=== PATIENT | male | born 1930 | race Caucasian/White ===

== ENCOUNTER 2022-02-19 09:21 | Inpatient (IN) ==
[2022-02-19] MEDS ORDERED: 0.9 % SODIUM CHLORIDE 500 ML IV ONE (09:33)
[2022-02-19] MEDS ORDERED: cefTRIAXone 1 GM VIAL IV ONE (09:38)
[2022-02-19 09:40] LABS: POC Calcium, Ionized 1.21 (1.16-1.32); POC Creatinine 0.6 (0.6-1.2); POC Potassium 3.9 (3.3-5.1)
--- NOTE | 2022-02-19 10:35 | XRay Report ---
INDICATION: sob TECHNIQUE: AP portable, semiupright chest x-ray COMPARISON: Previous chest x-rays dated 02/11/2022, 01/31/2022, 01/31/2022. FINDINGS: Left transvenous pacemaker and transvenous leads are unchanged. Diffuse pulmonary parenchymal infiltrates are worse than on previous examination. Findings are most consistent with underlying pulmonary fibrosis and superimposed pneumonia or pulmonary edema. Interval worsening of infiltrates is too rapid for simple progression of interstitial fibrosis. Clinical correlation follow-up radiographs are recommended. No significant interval change in heart size. No evidence for pleural effusion. IMPRESSION: 1. Findings consistent with underlying pulmonary fibrosis. 2. Diffuse infiltrates have progressed significantly since 02/11/2022 consistent with superimposed pneumonia or pulmonary edema. Follow-up radiographs recommended. Interpreted and Authenticated by: Fredy Betancourt 02/19/22
[2022-02-19 11:23] LABS: Basophils # (Auto) 0 K/mcL (0.00-0.30); Basophils % (Auto) 0 % (0.0-2.0); Eosinophils # (Auto) 0 K/mcL (0.00-0.70); Eosinophils % (Auto) 0 % (0.0-7.0); Hematocrit 34.8 % (40.1-51.0); Hemoglobin 11.4 g/dL (13.7-17.5); Lymphocytes # (Auto) 1.41 K/mcL (1.50-4.80); Lymphocytes % (Auto) 58.5 % (15.5-49.0); Mean Cell Volume 82.3 fL (80.0-100.0); Mean Corpuscular HGB Conc 32.8 g/dL (31.0-36.0); Mean Platelet Volume 10.3 fL (8.8-12.5); Monocytes # (Auto) 0.25 K/mcL (0.10-0.90); Monocytes % (Auto) 10.4 % (1.0-12.0); Neutrophils % (Auto) 30.3 % (38.0-78.0); Platelet Count 154 K/mcL (140-440); RBC 4.23 M/mcL (4.63-6.08); Red Cell Distribution Width 20.3 % (11.5-14.5); WBC 2.4 K/mcL (4.5-11.0)
--- NOTE | 2022-02-19 12:09 | Emergency Department Note ---
SOB HPI General Chief Complaint: Shortness of Breath/Dyspnea Stated Complaint: SOB Time Seen by Provider: 02/19/22 09:53 Source: EMS Mode of arrival: EMS Limitations: no limitations History of Present Illness HPI Narrative: Narrative: 89-year-old male, ex-smoker, with past medical history of COPD, pulmonary fibrosis, atrial fibrillation on apixaban, with pacemaker, hypertension and as below presents with shortness of breath and chest tightness and hypoxia. Patient's states that patient did took off his oxygen last night and he is a O2 sat went down to 50 and then he was put up back on O2 4 L with improvement in O2 to 70. Patient only uses oxygen at home does not use nebulizer. Patient was given DuoNeb and Solu-Medrol 125 mg IV by EMT No headache dizziness abdominal pain nausea vomiting diarrhea fever or chills Related Data Home Medications Medication Instructions Recorded Confirmed apixaban 5 mg tablet (Eliquis) 5 mg PO BID 08/23/19 12/11/21 guaifenesin 600 mg tablet, 600 mg PO BID 06/06/21 12/11/21 extended release 12 hr diltiazem HCl 120 mg 1 cap PO QDAY 02/19/22 02/19/22 capsule,extended release 24 hr Allergies Allergy/AdvReac Type Severity Reaction Status Date / Time No Known Drug Allergies Allergy Verified 11/23/21 08:50 Review of Systems ROS ROS Narrative: Narrative: All systems ED: reviewed and negative except as stated. Constitutional: Reports as per HPI PFSH Narrative Patient History Narrative: Narrative: Medical/Surgical/Family History All Active Problems (Updated 02/19/22 @ 12:19 by Prabhakar Aviles MD) Fall (Acute) Laceration of hand, left (Acute) Laceration of elbow, left (Acute) Community acquired pneumonia (Acute) Acute exacerbation of chronic obstructive pulmonary disease (Acute) Hypoxia (Acute) Pulmonary fibrosis (Acute) Pneumonia (Acute) Presence of permanent cardiac pacemaker (Chronic) Dizziness (Chronic) Dietary counseling (Chronic) Other atopic dermatitis (Chronic) Actinic keratosis (Chronic) Hemangioma (Chronic) Other specified disorders of pigmentation (Chronic) Other benign neoplasm of skin of trunk (Chronic) Seborrheic keratosis (Chronic) Idiopathic urticaria (Chronic) Hx of malignant neoplasm of prostate (Chronic) Benign prostatic hyperplasia with lower urinary tract symptoms (Chronic) Nocturia (Chronic) Elevated prostate specific antigen (PSA) (Chronic) Urgency of urination (Chronic) Memory loss (Chronic) Fatigue (Chronic) Hypertensive heart disease with heart failure (Chronic) 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) Chronic diastolic heart failure (Chronic) Complete atrioventricular block (Chronic) Sick sinus syndrome (Chronic) Paroxysmal atrial fibrillation (Chronic) Ankle edema, bilateral (Chronic) Chronic cough (Chronic) Erectile dysfunction (Chronic) Laryngopharyngeal reflux (Chronic) Vestibular disorders (Chronic) Tinnitus (Chronic) Allergic rhinitis (Chronic) Skin mole (Chronic) Lentigo (Chronic) GERD (gastroesophageal reflux disease) (Chronic) Interstitial lung disease (Chronic) Dyspnea (Chronic) Obstructive sleep apnea (Chronic) Bronchiectasis (Chronic) Acid aspiration syndrome (Chronic) Nocturnal hypoxemia (Chronic) LINDSAY positive (Chronic) Pulmonary fibrosis, unspecified (Chronic) Chronic leukopenia (Chronic) Prostate cancer (Chronic) Anemia (Chronic) Leukopenia (Chronic) Ex-smoker (Chronic) Hypoxia (Chronic) OAB (overactive bladder) (Acute) Medical History Acid aspiration syndrome Actinic keratosis Allergic rhinitis LINDSAY positive Anemia Ankle edema, bilateral Benign prostatic hyperplasia with lower urinary tract symptoms Bronchiectasis Chronic cough Chronic diastolic heart failure Complete atrioventricular block Dietary counseling Dizziness Dyspnea Elevated prostate specific antigen (PSA) Erectile dysfunction Ex-smoker Fatigue GERD (gastroesophageal reflux disease) Hemangioma Hx of malignant neoplasm of prostate Hypertensive heart disease with heart failure Hypoxia Idiopathic urticaria Interstitial lung disease Laryngopharyngeal reflux Lentigo Leukopenia 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 Memory loss Nocturia Nocturnal hypoxemia Obstructive sleep apnea Other atopic dermatitis Other benign neoplasm of skin of trunk Other specified disorders of pigmentation Paroxysmal atrial fibrillation Presence of permanent cardiac pacemaker Prostate cancer Pulmonary fibrosis, unspecified Seborrheic keratosis Sick sinus syndrome Skin mole trunk Tinnitus Urgency of urination Vestibular disorders Surgical History H/O hernia repair (~1979) abdominal History of bone marrow biopsy (~02/2020) History of cystoscopy History of permanent cardiac pacemaker placement (10/21/16) Done at [facility] History of tonsillectomy and adenoidectomy Family History Father , age 74 Myocardial infarction Cancer Son Rheumatoid arthritis Brother Prostate cancer Social History Smoking Status: Former smoker Alcohol Intake Frequency: 0-2 drinks per day Substance Use: does not use Exam Narrative Narrative: Narrative: General Limitations: no limitations General appearance: Present alert and other (Slightly short of breath) Head Head: Present atraumatic and normocephalic Respiratory Respiratory: Present wheezes and other (Coarse rales bilateral lung bases) Cardiovascular Cardiovascular: Present normal rhythm, tachycardia and normal heart sounds Adbominal Abdominal: Present soft; Absent tenderness, guarding or organomegaly Extremities Extremities: Absent pedal edema, cyanosis or clubbing Neurological Neurological: Present alert and oriented X3 Course Course Course Narrative: CBC, CMP, troponin, chest x-ray, blood gas, CRP, COVID were ordered normal salin e IV, Rocephin 1 g IV were given. WBC 2.4 higher than before. Absolute lymphocyte count 0.73 higher than before of 0.42. ABG unremarkable. CRP 13.10, troponin 0.02, chest x-ray consistent with pulmonary follow-up with superimposed pneumonia. Will call hospitalist for admission to the hospital. Discussed case with Dr. Bill who will come and see the patient and admit. Vital Signs Vital signs: Vital Signs Temperature 97.4 F 02/19/22 09:32 Pulse Rate 108 H 02/19/22 09:32 Respiratory Rate 26 H 02/19/22 09:32 Blood Pressure 119/105 02/19/22 09:32 Pulse Oximetry (%) 73 L 02/19/22 09:32 Oxygen Delivery Method 02/19/22 09:32 Oxygen Flow Rate (L/min) 5 02/19/22 09:32 Temperature 97.4 F 02/19/22 09:32 Pulse Rate 115 H 02/19/22 12:45 Respiratory Rate 30 H 02/19/22 12:45 Blood Pressure 118/68 02/19/22 12:45 Pulse Oximetry (%) 94 02/19/22 12:45 Oxygen Delivery Method 02/19/22 10:25 Oxygen Flow Rate (L/min) 7 02/19/22 10:25 MDM MDM Narrative Medical decision making narrative: Narrative: Lab Data Result diagrams: 02/19/22 09:48 Labs: Lab Results 02/19/22 02/19/22 02/19/22 Range/Units 09:34 09:37 09:48 WBC 2.4 L (4.5-11.0) K/mcL RBC 4.23 L (4.63-6.08) M/mcL Hgb 11.4 L (13.7-17.5) g/dL Hct 34.8 L (40.1-51.0) % POC Hct 33.0 L (41-55) MCV 82.3 (80.0-100.0) fL MCH 27.0 (26.0-34.0) pg MCHC 32.8 (31.0-36.0) g/dL RDW 20.3 H (11.5-14.5) % Plt Count 154 (140-440) K/mcL MPV 10.3 (8.8-12.5) fL Immature Gran % (Auto) 0.8 H (0.0-0.5) % Neut % (Auto) 30.3 L (38.0-78.0) % Lymph % (Auto) 58.5 H (15.5-49.0) % Bertie % (Auto) 10.4 (1.0-12.0) % Eos % (Auto) 0 (0.0-7.0) % Baso % (Auto) 0 (0.0-2.0) % Lymph # (Auto) 1.41 L (1.50-4.80) K/mcL Bertie # (Auto) 0.25 (0.10-0.90) K/mcL Eos # (Auto) 0 (0.00-0.70) K/mcL Baso # (Auto) 0 (0.00-0.30) K/mcL Immature Gran # 0.02 (0.00-0.05) K/mcl Absolute Neutrophils 0.73 L* (1.80-8.00) K/mcL POC VBG pH 7.36 (7.32-7.42) POC VBG pCO2 at Temp 43.2 (41-51) POC VBG pO2 26 (25-40) POC VBG HCO3 24.4 (24-28) POC VBG Total CO2 26.0 (25-29) POC Venous O2 Sat 46.0 (40-70) POC VBG Base Excess -1.0 (-2-2) VBG Lactic Acid 2.0 (0.5-2) POC Sodium 134 (133-145) POC Potassium 3.9 (3.3-5.1) POC Chloride 100 (96-108) POC Total CO2 24.0 (22-30) POC BUN 28 H (6-20) POC Creatinine 0.6 (0.6-1.2) POC Glucose 119 H (70-105) POC WB Ioniz Calcium 1.21 (1.16-1.32) C-Reactive Protein (0.03-0.80) mg/dL POC Troponin I (0.00-0.08) 02/19/22 02/19/22 Range/Units 09:48 09:59 WBC (4.5-11.0) K/mcL RBC (4.63-6.08) M/mcL Hgb (13.7-17.5) g/dL Hct (40.1-51.0) % POC Hct (41-55) MCV (80.0-100.0) fL MCH (26.0-34.0) pg MCHC (31.0-36.0) g/dL RDW (11.5-14.5) % Plt Count (140-440) K/mcL MPV (8.8-12.5) fL Immature Gran % (Auto) (0.0-0.5) % Neut % (Auto) (38.0-78.0) % Lymph % (Auto) (15.5-49.0) % Bertie % (Auto) (1.0-12.0) % Eos % (Auto) (0.0-7.0) % Baso % (Auto) (0.0-2.0) % Lymph # (Auto) (1.50-4.80) K/mcL [place]ie # (Auto) (0.10-0.90) K/mcL Eos # (Auto) (0.00-0.70) K/mcL Baso # (Auto) (0.00-0.30) K/mcL Immature Gran # (0.00-0.05) K/mcl Absolute Neutrophils (1.80-8.00) K/mcL POC VBG pH (7.32-7.42) POC VBG pCO2 at Temp (41-51) POC VBG pO2 (25-40) POC VBG HCO3 (24-28) POC VBG Total CO2 (25-29) POC Venous O2 Sat (40-70) POC VBG Base Excess (-2-2) VBG Lactic Acid (0.5-2) POC Sodium (133-145) POC Potassium (3.3-5.1) POC Chloride (96-108) POC Total CO2 (22-30) POC BUN (6-20) POC Creatinine (0.6-1.2) POC Glucose (70-105) POC WB Ioniz Calcium (1.16-1.32) C-Reactive Protein 13.10 H (0.03-0.80) mg/dL POC Troponin I 0.02 (0.00-0.08) Discharge Plan Patient/Caregiver Discharge Instructions Pt seen by MEDICAL LANGUAGE SPECIALIST/PA only: No Clinical Impression: Acute exacerbation of chronic obstructive pulmonary disease, Hypoxia, Pulmonary fibrosis, Pneumonia Patient Disposition: Xfer As Inpt ([facility]) Condition: Fair Follow up with: Yamilet Guardado ARNP [Primary Care Provider] - Prescriptions: No Action Eliquis 5 mg tablet 5 mg PO BID guaifenesin 600 mg tablet extended release 12hr 600 mg PO BID diltiazem HCl 120 mg capsule,extended release 24hr 1 cap PO QDAY
--- NOTE | 2022-02-19 13:16 | Internal Med History&Physical ---
HPI History of Present Illness Patient information: Note initiated : 02/19/22 at 1:08 pm Service Date, if different from initiated Date: [] Patient: Singh Vega a 89 y/o M admitted on for Shortness of breath. Chief Complaint: [shortness of breath with oxygen desaturation] Chief complaint: shortness of breath with oxygen desaturation History of present illness: Mr. Vega is a 89 year old M COPD, pulmonary fibrosis, atrial fibrillation's, presenting with 2-day history of shortness of breath and oxygen desaturations. Patient's was being diagnosed and being treated with community-acquired pneumonia about 2 weeks ago with prescriptions of oral antibiotics. Patient was in his usual health status until yesterday when he took off his oxygen mask his oxygen saturations became in the 50s. His put his oxygen back on and the best of his oxygen saturations with only be improved up to the 70s. Patient used up to 3 L/min of oxygen at the baseline and his had to increase that to 4 L/min but he still with desaturated. He also have shortness of breath. He also have productive cough with bloody sputum productions. He denies respiratory wheezing. He denies any fever, chills, or diaphoresis. He denies a ny chest pain or palpitations. Vital signs at ED presentation significant for tachycardia and tachypnea with heart rate and rate of breathing in the 1 teens and 30s, respectively. Labs significant for leukopenia with WBC 2.4, with an neutrophil count 30.3%. Lactic acid 2.0. CRP 13.10. CEPHEID pending. Chest x- ray showing diffuse infiltrates that have not progressed significantly since last study a week ago, consistent with superimposed pneumonia or pulmonary edema. Admission request was called for pneumonia and COPD exacerbations. Constitutional Constitutional: Absent chills, excessive sweating, fatigue, fever(s) or weakness EENT Eyes: Absent blurry vision, change in vision, loss of vision or other visual disturbances Ears: Absent decreased hearing or tinnitus Nose, mouth and throat: Absent abnormal hearing, dry mouth, headache(s), nasal congestion or sore throat Cardiovascular Cardiovascular: Absent chest pain, chest pain at rest, edema, irregular heart rhythm or palpatations Respiratory Respiratory: Present cough, dyspnea, hemoptysis and excessive phlegm production; Absent wheezing Gastrointestinal Gastrointestinal: Absent abdominal pain, constipation, diarrhea, nausea or vomiting Musculoskeletal Musculoskeletal: Absent back pain, deformity, limited range of motion, muscle cramps, muscle weakness or numbness Integumentary Integumentary: Absent lesions, rash or wounds Neurological Neurological: Absent focal weakness, headache(s) or numbness Psychiatric Psychiatric: Absent anxiety, depression or hallucinations PFSH PFSH All Active Problems (Updated 02/19/22 @ 13:15 by Anuel Lara MD) Permanent atrial fibrillation (Acute) Sepsis (Acute) Fall (Acute) Laceration of hand, left (Acute) Laceration of elbow, left (Acute) Community acquired pneumonia (Acute) Acute exacerbation of chronic obstructive pulmonary disease (Acute) Hypoxia (Acute) Pulmonary fibrosis (Acute) Pneumonia (Acute) Presence of permanent cardiac pacemaker (Chronic) Dizziness (Chronic) Dietary counseling (Chronic) Other atopic dermatitis (Chronic) Actinic keratosis (Chronic) Hemangioma (Chronic) Other specified disorders of pigmentation (Chronic) Other benign neoplasm of skin of trunk (Chronic) Seborrheic keratosis (Chronic) Idiopathic urticaria (Chronic) Hx of malignant neoplasm of prostate (Chronic) Benign prostatic hyperplasia with lower urinary tract symptoms (Chronic) Nocturia (Chronic) Elevated prostate specific antigen (PSA) (Chronic) Urgency of urination (Chronic) Memory loss (Chronic) Fatigue (Chronic) 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) Chronic diastolic heart failure (Chronic) Complete atrioventricular block (Chronic) Sick sinus syndrome (Chronic) Paroxysmal atrial fibrillation (Chronic) Ankle edema, bilateral (Chronic) Chronic cough (Chronic) Erectile dysfunction (Chronic) Laryngopharyngeal reflux (Chronic) Vestibular disorders (Chronic) Tinnitus (Chronic) Allergic rhinitis (Chronic) Skin mole (Chronic) Lentigo (Chronic) GERD (gastroesophageal reflux disease) (Chronic) Interstitial lung disease (Chronic) Dyspnea (Chronic) Obstructive sleep apnea (Chronic) Bronchiectasis (Chronic) Acid aspiration syndrome (Chronic) Nocturnal hypoxemia (Chronic) LINDSAY positive (Chronic) Pulmonary fibrosis, unspecified (Chronic) Chronic leukopenia (Chronic) Prostate cancer (Chronic) Anemia (Chronic) Leukopenia (Chronic) Ex-smoker (Chronic) Hypoxia (Chronic) OAB (overactive bladder) (Acute) Medical History Acid aspiration syndrome Actinic keratosis Allergic rhinitis LINDSAY positive Anemia Ankle edema, bilateral Benign prostatic hyperplasia with lower urinary tract symptoms Bronchiectasis Chronic cough Chronic diastolic heart failure Complete atrioventricular block Dietary counseling Dizziness Dyspnea Elevated prostate specific antigen (PSA) Erectile dysfunction Ex-smoker Fatigue GERD (gastroesophageal reflux disease) Hemangioma Hx of malignant neoplasm of prostate Hypertensive heart disease with heart failure Hypoxia Idiopathic urticaria Interstitial lung disease Laryngopharyngeal reflux Lentigo Leukopenia extermination inspector (current) use of anticoagulants Memory loss Nocturia Nocturnal hypoxemia Obstructive sleep apnea Other atopic dermatitis Other benign neoplasm of skin of trunk Other specified disorders of pigmentation Paroxysmal atrial fibrillation Presence of permanent cardiac pacemaker Prostate cancer Pulmonary fibrosis, unspecified Seborrheic keratosis Sick sinus syndrome Skin mole trunk Tinnitus Urgency of urination Vestibular disorders Surgical History H/O hernia repair (~1979) abdominal History of bone marrow biopsy (~02/2020) History of cystoscopy History of permanent cardiac pacemaker placement (10/21/16) Done at [facility] History of tonsillectomy and adenoidectomy Family History Father , age 74 Myocardial infarction Cancer Son Rheumatoid arthritis Brother Prostate cancer Social History marital status: occupational status: retired smoking status: Former smoker quit date: 03/24/79 pack-years: 12 smoking status stop date: 03/24/79 alcohol intake frequency: 0-2 drinks per day substance use type: does not use MEDS/ALLERGIES Home Medications and Allergies Home Medications Medication Instructions Recorded Confirmed Type apixaban 5 mg tablet (Eliquis) 5 mg PO BID 08/23/19 02/19/22 History guaifenesin 600 mg tablet, 600 mg PO BID 06/06/21 02/19/22 History extended release 12 hr diltiazem HCl 120 mg 1 cap PO QDAY 02/19/22 02/19/22 History capsule,extended release 24 hr Allergies Allergy/AdvReac Type Severity Reaction Status Date / Time No Known Drug Allergies Allergy Verified 11/23/21 08:50 EXAM Constitutional Vitals: Temp Pulse Resp BP Pulse Ox O2 Del Method O2 Flow Rate 36.3 C 115 H 30 H 118/68 94 7 02/19/22 09:32 02/19/22 12:45 02/19/22 12:45 02/19/22 12:45 02/19/22 12:45 02/19/22 10:25 02/19/22 10:25 General appearance: cooperative, mild distress and thin Head Head exam: Present atraumatic and normocephalic Eye Eye exam: Present EOMI and PERRL ENT ENT exam: Present mucous membranes moist, normal exam and normal external ear exam Additional comments: Oxygen mask in place Neck Neck exam: Present normal inspection; Absent lymphadenopathy, tenderness or thyromegaly Respiratory Respiratory exam: Present rhonchi; Absent accessory muscle use, respiratory distress or wheezes Cardiovascular Cardiovascular exam: Present irregular rhythm and tachycardia; Absent JVD GI/Abdominal GI/Abdominal exam: Present normal bowel sounds and soft; Absent organomegaly or tenderness Rectal Rectal exam: Present deferred Extremities Exam Extremities exam: Present full ROM, normal capillary refill and normal inspection; Absent tenderness Neurological Exam Neurological exam: Present alert, CN II-XII intact and oriented X3; Absent motor sensory deficit Psychiatric Psychiatric exam: Present normal affect and normal mood; Absent anxious or depressed Skin Skin exam: Present dry and intact DATA Data Completed and Pending Labs: Labs from last 24 hours 02/19/22 02/19/22 02/19/22 09:59 09:48 09:48 WBC 2.4 L RBC 4.23 L Hgb 11.4 L Hct 34.8 L POC Hct MCV 82.3 MCH 27.0 MCHC 32.8 RDW 20.3 H Plt Count 154 MPV 10.3 Immature Gran % (Auto) 0.8 H Neut % (Auto) 30.3 L Lymph % (Auto) 58.5 H [place] % (Auto) 10.4 Eos % (Auto) 0 Baso % (Auto) 0 Lymph # (Auto) 1.41 L [place] # (Auto) 0.25 Eos # (Auto) 0 Baso # (Auto) 0 Immature Gran # 0.02 Absolute Neutrophils 0.73 L* POC VBG pH POC VBG pCO2 at Temp POC VBG pO2 POC VBG HCO3 POC VBG Total CO2 POC Venous O2 Sat POC VBG Base Excess VBG Lactic Acid POC Sodium POC Potassium POC Chloride POC Total CO2 POC BUN POC Creatinine POC Glucose POC WB Ioniz Calcium C-Reactive Protein 13.10 H POC Troponin I 0.02 02/19/22 02/19/22 09:37 09:34 WBC RBC Hgb Hct POC Hct 33.0 L MCV MCH MCHC RDW Plt Count MPV Immature Gran % (Auto) Neut % (Auto) Lymph % (Auto) [place] % (Auto) Eos % (Auto) Baso % (Auto) Lymph # (Auto) [place] # (Auto) Eos # (Auto) Baso # (Auto) Immature Gran # Absolute Neutrophils POC VBG pH 7.36 POC VBG pCO2 at Temp 43.2 POC VBG pO2 26 POC VBG HCO3 24.4 POC VBG Total CO2 26.0 POC Venous O2 Sat 46.0 POC VBG Base Excess -1.0 VBG Lactic Acid 2.0 POC Sodium 134 POC Potassium 3.9 POC Chloride 100 POC Total CO2 24.0 POC BUN 28 H POC Creatinine 0.6 POC Glucose 119 H POC WB Ioniz Calcium 1.21 C-Reactive Protein POC Troponin I A/P Assessment and plan (1) Sepsis: Status: Acute (2) Community acquired pneumonia: Status: Acute (3) Acute exacerbation of chronic obstructive pulmonary disease: Status: Acute (4) Pulmonary fibrosis: Status: Acute (5) Permanent atrial fibrillation: Status: Acute Narrative A/P Narrative: Assessment and Plans: 1. Community-acquired pneumonia but failed outpatient therapy with associated clinical sepsis: Inpatient PCU with telemetry Supplemental oxygen therapy titrate to achieve SPO2 above or equal to 88% MRSA screening Serial troponin Procalcitonin Blood culture Sputum culture CEPHEID CBC with auto differential in the morning to trend WBC Normal saline at 100 cc/h Vancomycin Zosyn Physical therapy evaluation and treatment 2. COPD exacerbations: Supplemental oxygen therapy titrate to achieve SPO2 above or equal to 88% Solu-Medrol DuoNeb nebulizer scheduled Antibiotic therapy, see #1 3. History of pulmonary fibrosis: Continue to monitor 4. Permanent atrial fibrillation: Diltiazem Eliquis GI ppx: Protonix DVT ppx: Eliquis Code status: DNR Prognosis: guarded Disposition: inpatient PCU; PT OT Time Spent With Patient Time: Total time spent is greater than 50% in coordination of care (as documented) at patient's floor/unit and/or counseling patient: Total time spent with greater than 50% in coordination of care (as documented) at patient's floor/unit and/or counseling patient:: 50 - 70 minutes
[2022-02-19] MEDS ORDERED: ACETAMINOPHEN 325 MG TABLET PO PRN (14:53)
[2022-02-19] MEDS ORDERED: VANCOMYCIN PER PHARMACY IV SCH (14:53)
[2022-02-19] MEDS ORDERED: ONDANSETRON 4 MG/2 ML VIAL IV PRN (14:53)
[2022-02-19] MEDS ORDERED: SENNOSIDES 1 TABLET PO PRN (14:53)
[2022-02-19] MEDS ORDERED: LACTULOSE 20 GM/30 ML ORAL.SOL PO PRN (14:53)
[2022-02-19] MEDS: 0.9 % SODIUM CHLORIDE 1,000 ML IV SCH (14:56)
[2022-02-19] MEDS: 0.9 % SODIUM CHLORIDE 10 ML SYRINGE IV SCH ×2 (14:56→19:45)
[2022-02-19] MEDS ORDERED: VANCOMYCIN 1,000 MG in 0.9 % SODIUM CHLORIDE 250 ML IV SCH (15:00)
[2022-02-19] MEDS: methylPREDNISolone SOD SUCC 125 MG/2 ML VIAL IV SCH ×2 (15:12→22:02)
[2022-02-19] MEDS: IPRATROPIUM/ALBUTEROL 3 ML AMPUL.NEB NEB SCH ×3 (15:14→23:11)
[2022-02-19] MEDS: PIPERACILLIN SODIUM/TAZOBACTAM 3.375 GM in DEXTROSE 5% IN WATER 50 ML IV SCH (16:42)
[2022-02-19] MEDS ORDERED: LORazepam 2 MG/ML VIAL IV PRN (20:16)
[2022-02-19] MEDS ORDERED: NITROGLYCERIN 0.4 MG TAB.SUBL SL PRN (20:26)
[2022-02-19] MEDS ORDERED: morphine 2 MG/ML VIAL IV PRN (20:26)
[2022-02-19] MEDS ORDERED: NITROGLYCERIN 0.4 MG TAB.SUBL SL ONE (20:28)
[2022-02-19] MEDS ORDERED: LORazepam 2 MG/ML VIAL ONE (20:37)
[2022-02-19] MEDS ORDERED: PANTOPRAZOLE 40 MG TABLET PO SCH (21:00)
[2022-02-19] MEDS ORDERED: DOCUSATE SODIUM 100 MG CAPSULE PO SCH (21:00)
[2022-02-19] MEDS ORDERED: APIXABAN 5 MG TABLET PO SCH (21:00)
[2022-02-19] MEDS ORDERED: guaiFENesin 600 MG TAB.SR.12H PO SCH (21:00)
[2022-02-19] MEDS ORDERED: IOPAMIDOL 100 ML BOTTLE IV ONE (22:46)
[2022-02-20] MEDS: PIPERACILLIN SODIUM/TAZOBACTAM 3.375 GM in DEXTROSE 5% IN WATER 50 ML IV SCH (00:12)
[2022-02-20] MEDS ORDERED: METOPROLOL TARTRATE 5 MG/5 ML VIAL IV ONE (02:32)
[2022-02-20] MEDS: METOPROLOL TARTRATE 5 MG/5 ML VIAL IV SCH ×2 (02:35→03:13)
[2022-02-20] MEDS: 0.9 % SODIUM CHLORIDE 1,000 ML IV SCH (03:01)
[2022-02-20] MEDS: IPRATROPIUM/ALBUTEROL 3 ML AMPUL.NEB NEB SCH (03:14)
--- NOTE | 2022-02-20 05:42 | Cat Scan Report ---
INDICATION: rule out PE COMPARISON: Previous chest x-rays dated 02/19/2022, 02/11/2022, 01/31/2022. TECHNIQUE: Axial images obtained through the chest. 60ml Isovue 370 injected intravenously, and scanning was performed during pulmonary arterial phase. Sagittally and coronally reformatted images were obtained. MIP reformatted images. FINDINGS: Examination was initially interpreted by [facility] Examination is suboptimal as this patient was unable to suspend respiration. Previous chest x-ray demonstrated abnormality suggestive of underlying pulmonary fibrosis with superimposed infiltrates consistent with pneumonia or edema Lungs:Severe diffuse abnormality. There are extensive groundglass infiltrates throughout both lungs. There is reticular abnormality which may indicate underlying pulmonary fibrosis. There is no honeycombing. Findings remain suggestive of underlying pulmonary fibrosis with superimposed acute infiltrates. Infiltrates appear worsened on prior examination dated 02/19/2022. Pulmonary edema or diffuse infection are possible. Mediastinum, vascular:Main pulmonary artery, right pulmonary artery, left pulmonary artery are negative. No intraluminal filling defects. No lobar, segmental, or subsegmental emboli. Thoracic aorta is negative. No aneurysmal dilatation. Main pulmonary artery measures 3.0 cm in cross-sectional diameter. This is borderline enlarged No pathologic mediastinal or hilar adenopathy. The thoracic esophagus is mildly dilated and gas-filled. A definite esophageal mass is not identified on this somewhat limited examination. Heart:There is cardiomegaly with biatrial enlargement. There is reflux of contrast material into the inferior vena cava and hepatic veins consistent with right heart failure Pleura:There are small bilateral pleural effusions. Axilla, supraclavicular regions, chest wall:No pathologic axillary or supraclavicular adenopathy. Musculoskeletal:Negative thoracic spine. No compression fracture. No lytic lesion. No rib or sternal lesions Upper Abdomen:Negative IMPRESSION: 1. Limited evaluation due to inability to suspend respiration 2. Negative pulmonary CTA. No pulmonary embolism. Borderline enlargement of main pulmonary artery 3. Cardiomegaly with biatrial enlargement. Reflux of contrast material into the inferior vena cava and hepatic veins consistent with right heart failure or strain 4. Diffuse pulmonary parenchymal abnormality. Generalized groundglass infiltrates appear worse than on prior chest x-rays. Appearance remains most consistent with probable underlying pulmonary fibrosis and superimposed pneumonia or pulmonary edema. Edema and congestive heart failure are favored The exam was performed using radiation dose optimization techniques including, but not limited to, automated exposure control, adjustment of the mA and/or kV according to patient size and use of iterative reconstruction technique. Interpreted and Authenticated by: Fredy Betancourt 02/20/22
--- NOTE | 2022-02-20 08:26 | Death Note ---
Discharge Sum: Prov Provider Patient information: Note initiated : 02/20/22 at 8:25 am Service Date, if different from initiated Date: [] Patient: Singh Vega 89 y/o M admitted on 02/19/22 for Shortness of breath. Chief Complaint: [shortness of breath ] Primary care physician: Yamilet Guaraddo Attending physician on admission: Anuel Lara Consults: 02/19/22 Consult to Physician [CONS] Stat Comment: Consulting Provider: Anuel Lara Reason For Exam: Physician to Consult Discharge Sum: Diag PCOD Cause of : Respiratory arrest Contributing Factors (1) Sepsis: (2) Community acquired pneumonia: (3) Acute exacerbation of chronic obstructive pulmonary disease: (4) Pulmonary fibrosis: (5) Permanent atrial fibrillation: Discharge Sum: Summary Date and Time Date of admission: 02/19/22 14:46 Date of : 02/20/22 Time of : 03:24 Additional Data Confirmation of as documented by pronouncing clinician: no pulse, no respirations, no heart sounds and pupils fixed and dilated Attending physician: Anuel Lara MD Was code activated?: No Autopsy requested?: No Advance directives?: Yes Hospice patient?: No
[2022-02-20] MEDS ORDERED: DILTIAZEM 120 MG CAP.XL.24H PO SCH (09:00)
--- NOTE | 2022-02-20 10:53 | EKG ---
[facility] Test Date: 2022-02-19 Pat Name: Singh Vega Department: ICU Room: 118 Gender: Male [place] Physiotherapist: : [id number] Requested By: Anuel Lara Order Number: [id number] Reading MD: Jovany Overton Measurements Intervals [place] Rate: 133 P: MI: QRS: -14 QRSD: 78 T: -49 QT: 307 QTc: 457 Interpretive Statements Atrial fibrillation with RVR ST abnormality, inferolateral leads Electronically Signed On 02-20-2022 10:53:08 PST by Jovany Overton /[id number]
== END 2022-02-20 06:45 | disposition expired | DRG 871 ==
LOC: ED 09:21 → ICU 14:46
PROVIDERS: ADMIT Internal Medicine; ATTEND Internal Medicine